=== PATIENT | male | born 1930 | race Caucasian/White ===

== ENCOUNTER 2018-05-22 14:19 | Day surgery (SDC) | payer MEDICARE, OTHER ==
[2018-05-22] VITALS (9 sets, daily range): BP systolic 132–176; BP diastolic 53–75
[~2018-05-22] VITALS: Ht 172.7 cm; Wt 78.0 kg
[~2018-05-22 14:19] MED LIST: AMLO5TAB4 PO; ASCO500C15 PO; ASPI-845 PO; ATOR10TA PO; CARV3.12 PO; CHOL100024 PO; CYAN100087 PO; CYAN1TAB2 PO; DONE10TA7 PO; FLAX1CAP4 PO; LIRA0.6P2 SQ; MAGN400C PO; METF500T7 PO; OMEG1CAP2 PO; SERT100T PO; SOLI5TAB2 PO; UBID100C16 PO; [UNRECOGNIZED DRUG - CODE] PO
[2018-05-22] MEDS ORDERED: LORazepam 0.5 MG tablet PO ONE (14:45)
[2018-05-22] MEDS ORDERED: diphenhydrAMINE 25mg capsule PO ONE (14:45)
[2018-05-22] MEDS ORDERED: normal saline 1000ml 1,000 ML IV SCH (14:45)
[2018-05-22] MEDS ORDERED: LIDOcaine/PRILOcaine 5gm cream TP ONE (14:45)
[2018-05-22] MEDS ORDERED: ASPI-611 PO (16:31)
[2018-05-22] MEDS ORDERED: nitroGLYCERIN-Tridil 50MG/D5W 0 ML IV ONE (16:37)
[2018-05-22] MEDS ORDERED: midazolam 2 mg/2 ml injection ONE (16:38)
[2018-05-22] MEDS ORDERED: heparin 1,000unit/ml 10ml vial 0 ML ONE (16:38)
[2018-05-22] MEDS ORDERED: iohexol 350MG/ML 100ml bottle IV ONE (16:38)
[2018-05-22] MEDS ORDERED: fentaNYL/PF 50MCG/1 ML 2ML syringe ONE (16:38)
[2018-05-22] MEDS ORDERED: verapamil 2.5 mg/ml inj IV ONE (16:39)
[2018-05-22] MEDS ORDERED: FLO0.4C PO (16:47)
[2018-05-22] MEDS ORDERED: RIVA1PAT3 TOP (16:48)
[2018-05-22] MEDS ORDERED: PIOG1TAB9 PO (16:51)
[2018-05-22] MEDS ORDERED: MEMA5TAB PO (16:53)
[2018-05-22] MEDS ORDERED: MULT1TAB85 PO (16:53)
[2018-05-22] MEDS ORDERED: FURO-150 PO (16:54)
[2018-05-22] MEDS ORDERED: MULT-1141 PO (16:55)
[2018-05-22] MEDS ORDERED: LIDOcaine 1% (10mg/ml)w/preservative injection 20ml MDV ONE (17:05)
[2018-05-22] MEDS ORDERED: proCHLORperazine 10 MG/2 ml inj IV PRN (18:15)
[2018-05-22] MEDS ORDERED: HYDROcodone/acetaminophen 10/325mg tab PO PRN (18:15)
[2018-05-22] MEDS ORDERED: HYDROcodone/acetaminophen 5mg/325mg tablet PO PRN (18:15)
[2018-05-22] MEDS ORDERED: ondansetron/PF 4mg/2ml inj IV PRN (18:15)
== END 2018-05-22 20:45 | disposition home or self-care (01) ==
LOC: SSTAY O 14:19
PROVIDERS: ATTEND Internal Medicine Interventional Cardiology
DX: I25.810 Atherosclerosis of coronary artery bypass graft(s) without angina pectoris (principal); I35.0 Nonrheumatic aortic (valve) stenosis; E78.5 Hyperlipidemia, unspecified; I12.9 Hypertensive chronic kidney disease with stage 1 through stage 4 chronic kidney disease, or unspecified chronic kidney disease; E11.22 Type 2 diabetes mellitus with diabetic chronic kidney disease; N18.9 Chronic kidney disease, unspecified; Z95.0 Presence of cardiac pacemaker; Z87.891 Personal history of nicotine dependence; Z72.89 Other problems related to lifestyle; Z95.1 Presence of aortocoronary bypass graft; Z79.82 Long term (current) use of aspirin; Z79.899 Other long term (current) drug therapy; Z98.890 Other specified postprocedural states
CPT/HCPCS: 93005; 93461; 99152; 99153; A6257; C1760; J1644; J2001; J3010; J7030; Q0163; Q9967; A4620; C1769; J2250; J3490